=== PATIENT | male | born 1960 | race African-American/Black ===

== ENCOUNTER 2017-11-24 06:07 | Emergency (ER) | payer MEDICAID ==
[~2017-11-24] VITALS: Ht 162.6 cm; Wt 65.8 kg
[2017-11-24 06:53] LABS: Urine Bacteria NONE SEEN /hpf (None Seen); Urine Blood Negative /uL (Negative); Urine Mucus FEW (None Seen); Urine Specific Gravity 1.019 (1.001-1.035); Urine WBC 47 /hpf (0 - 3)
[2017-11-24 08:06] VITALS: BP 131/82
[2017-11-24] MEDS ORDERED: AZITHROMYCIN 250 MG TAB PO ONE (08:30)
[2017-11-24] MEDS ORDERED: cefTRIAXone SODIUM 250 MG VL IM ONE (08:30)
== END 2017-11-24 08:45 | disposition home or self-care (01) ==
LOC: ER 06:12
DX: N39.0 Urinary tract infection, site not specified (principal); F17.210 Nicotine dependence, cigarettes, uncomplicated
CPT/HCPCS: 81001; 96372; 99283; J0696